=== PATIENT | male | born 1940 | race Caucasian/White ===

== ENCOUNTER 2019-12-21 11:36 | Inpatient (IN) | payer OTHER, MEDICARE ==
[~2019-12-21] VITALS: Ht 182.9 cm; Wt 88.3 kg
[~2019-12-21 11:36] MED LIST: ASPIRIN325 PO; AUGMENTIN 875-1 EACH PO; B12 PO; CIPROFLOXACIN500 M1 PO; COLACE100 MG PO; EXELON1 EAC1; EXELON1 EAC1 TOP; FLOMAX PO; FOLIC ACID 40400 MC1 PO; HYDROCORTISONE30 G9 TOP; IBUPROFEN 800800 M1 PO; LEVOTHYROXINE0.05 MG PO; LIPITOR; LIPITOR10 MG PO; METAMUCIL660 GM PO; NAMENDA; NAMENDA 10 MG T10 MG PO; NORCO 5-325 TA1 EACH PO; OXYCODONE HCL 55 MG PO; SYNTHROID; TRAMADOL200 MG PO; XARELTO10 MG PO; ZOFRAN ODT4 MG PO; ZOLOFT50 MG PO; [UNRECOGNIZED DRUG - OTHER]; [UNRECOGNIZED DRUG - REMARK]
[2019-12-21 11:43] VITALS: BP 129/67
[2019-12-21 12:04] LABS: BASOPHILS 1.4 % (0.0-2.0); EOSINOPHILS 1.3 % (0.0-3.0); HEMATOCRIT 44.7 % (42.0-52.0); HEMOGLOBIN 15.2 gm/dL (14.0-18.0); MCH 31.9 pg (26.0-34.0); MCV 93.8 fL (80.0-100.0); MONOCYTES 5.5 % (1.0-8.0); PLATELET COUNT 224 thou/uL (150-400); POLYS 69.8 % (36.0-66.0); RBC 4.77 mil/uL (4.50-6.00); WBC 7.2 thou/uL (4.0-11.0)
[2019-12-21 12:13] LABS: ANION GAP 7 mmol/L (7-16); BUN 14 mg/dL (7-18); CALCIUM 8.5 mg/dL (8.5-10.1); CHLORIDE 104 mmol/L (98-107); CO2 26 mmol/L (21-32); CREATININE 1.4 mg/dL (0.7-1.3); GLUCOSE 172 mg/dL (74-106); POTASSIUM 3.7 mmol/L (3.5-5.1); SODIUM 137 mmol/L (136-145)
[2019-12-21 12:17] LABS: ALBUMIN 3.4 g/dL (3.4-5.0); SALICYLATE < 2.8 mg/dL (2.8-20.0); SGOT 17 U/L (15-37); SGPT 22 U/L (30-65); TOTAL BILIRUBIN 0.5 mg/dL (<0.1-1.0); TOTAL PROTEIN 7.5 g/dL (6.4-8.2)
[2019-12-21] MEDS ORDERED: FLOMAX0.4 MG PO (12:33)
[2019-12-21] MEDS ORDERED: SEROQUEL 25 MG25 MG PO (12:33)
[2019-12-21] MEDS ORDERED: XANAX 0.25 MG0.25 MG PO (12:34)
[2019-12-21 13:37] LABS: URINE BILIRUBIN NEGATIVE (Negative); URINE BLOOD TRACE (Negative); URINE CLARITY CLEAR; URINE COLOR YELLOW; URINE GLUCOSE-RANDOM* NEGATIVE (Negative); URINE KETONES NEGATIVE (Negative); URINE LEUKOCYTES-REFLEX NEGATIVE (Negative); URINE NITRITE-REFLEX NEGATIVE (Negative); URINE PROTEIN (DIPSTICK) NEGATIVE (Negative); URINE SPECIFIC GRAVITY 1.025 (1.005-1.035); URINE UROBILINOGEN 0.2 E.U./dl (0.2-1.0)
[2019-12-21 13:46] LABS: AMP/METHAMP Negative (Negative); BARBITURATES Negative (Negative); BENZODIAZEPINES POSITIVE (Negative); COCAINE Negative (Negative); METHADONE Negative (Negative); OPIATES Negative (Negative); PCP Negative (Negative)
[2019-12-21 14:30] VITALS: BP 130/75
[2019-12-21 16:12] VITALS: BP 135/74
--- NOTE | 2019-12-21 16:21 | NUR ---
WHITE MALE ARRIVED ONT THE UNIT FROM ER ON A CART. HE IS ABLE TO AMBULATE FROM THE CART TO THE BED. HE IS VERY FORGETFUL AND NEEDS SEVERAL PROMPTS TO FOLLOW DIRECTIONS. HE CONTINUED TO STATE HIS IS TAKING HIM TO THE AIRPORT SO HE CAN FLY OUT TONIGHT BUT DID NOT STATE WHERE. HE WAS REMINDED BY THIS STAFF WHY HE WAS HERE AND THAT HE WOULD NOT BE FLYING OUT TONIGHT. HIS , ADA, DID BRING HIM TO THE HOSPITAL ER AND THEN LEFT TO RETURN TO THEIR HOME. PT. HAS BEEN LIVING AT HOME WITH HIS , BUT HE IS NOT EASY TO TAKE CARE OF ANY LONGER SO SHE BROUGHT HIM HERE FOR EVALUATION. HE HAS HAD A TOTAL LEFT HIP REPLACEMENT AND A HERNIA REPAIR SURGERY IN THE PAST. HE IS ALLERGIC TO CIPRO. HIS IS ONLY ORIENTED TO HIS NAME. WHEN HE FIRST GOT OUT OF HIS ROOM AND STARTED WALKING AROUND, HE WENT STRAIGHT TO THE FRONT DOORS AND STARTED ATTEMPTING TO GET OUT OF THE FRONT DOOR. HE WAS REDIRECTABLE THOUGH.
[2019-12-21 19:34] VITALS: BP 105/67
--- NOTE | 2019-12-21 21:54 | H ---
[facility] [place] [address] HISTORY AND PHYSICAL Name: CODY CANSECO Room #: 526B-B ADM IN M.R.#: [id number] Admission: 12/21/19 Attend Phys: Juarez Cantrell DO Discharge: Date of : 36 Report #: [id number] THIS REPORT FOR: cc: PATSY - Family physician unknown FAM - Family physician unknown Juarez Cantrell DO ~ CC: Juarez GARNER unknown DATE OF SERVICE: 12/21/2019 INPATIENT PSYCHIATRIC EVALUATION ATTENDING PHYSICIAN: Juarez Cantrell DO. DIVISION SERVICE MANAGER: Bryan Gutierrez MD CHIEF COMPLAINT: "Okay." SOURCES OF INFORMATION: Brief interview with the patient in person, telephone interview with , and the Emergency Room records. HISTORY OF PRESENT ILLNESS: This is 79, almost an 80-year-old male who was brought to the Emergency Room by his late morning today. The patient has a 14-year history of neurodegenerative disease, namely of Alzheimer's. He has been particularly disabled the last 9 years. Of late over the last few weeks, the patient is exit seeking, difficult to redirect. The has made some initial inquiries in a long-term care placement. She was declined at places due to feeling the patient needed a brief psychiatric hospitalization for medication evaluation. From Emergency Room notes, the patient was cooperative. The patient has notably been more aggressive in the evenings, progressed to being also grossly throughout the day. Regularly threatens to call the police on the patient's stating that he does not know who he is and wants her to be removed from his house. The patient's has attempted to adjust medications. Apparently, the patient sees Dr. Deborah August, neurologist, who is the patient's primary care provider. The patient is prescribed Xanax which makes him unsteady. PAST MEDICAL HISTORY: Includes inguinal herniorrhaphy, total left hip arthroplasty. HOME MEDICATIONS: Noted to be tamsulosin, Seroquel, alprazolam, atorvastatin, levothyroxine, memantine, rivastigmine, sertraline. ALLERGIES: CIPROFLOXACIN, REACTION IS A RASH. [facility] [address] [place] [address] HISTORY AND PHYSICAL Name: CODY CANSECO Room #: 526B-B ADM IN M.R.#: [id number] Admission: 12/21/19 Attend Phys: Juarez Cantrell DO Discharge: Date of : 36 Report #: [id number] SOCIAL HISTORY: The patient has denied history of tobacco, alcohol or illicit drugs. REVIEW OF SYSTEMS: From the ER: CONSTITUTIONAL: Negative for chills or fever. HEENT: Negative for ear pain and hearing loss. RESPIRATORY: Negative for cough. CARDIOVASCULAR: Negative for chest pain. GASTROINTESTINAL: Negative for abdominal pain, nausea, vomiting. GENITOURINARY: Negative for dysuria. MUSCULOSKELETAL: Negative for back pain, myalgias, neck pain. SKIN: Negative for rash. NEUROLOGICAL: Negative for headaches. Weight in the ED was 86.18 kg, BMI 25.9. ADDITIONAL SOCIAL HISTORY: The patient was born and raised in [place], [place]. He obtained a bachelor's degree. He had a noncombat service in the [employer]. 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 It sounds like around 15-20 years ago during normal skilled nursing times, the patient wanted to do murals, the last one he completed was 9 years ago. FAMILY HISTORY: He has a brother that committed suicide at 13, another brother who had brain damage from his fever, did make it to her adult life. He has been once previously. He currently has a blended family, his had 2 children, he had one son. He otherwise states they have been in the 38 [place] neighborhood. As far as I recall, the states the adopted one of her children when they got . The patient has no history of civil or criminal legal trouble. Also, no history of stroke, cancers. LABORATORY DATA: CBC within normal limits. Chemistry: Sodium 137, potassium 3.7, chloride 104, bicarbonate 26, anion gap 7, BUN 14, creatinine 1.4, estimated GFR 49, glucose 172, calcium 8.5, total bilirubin 0.5, AST 17, ALT 22, alkaline phosphatase 79, total protein 7.5, albumin 3.4. Urinalysis showed trace blood, otherwise within normal limits. Toxicology: Less than 2 salicylates, less than 2 acetaminophen. Urine drug screen was negative except positive for benzodiazepines. Serum alcohol was less than 10. No radiology was performed. PHYSICAL EXAMINATION: VITAL SIGNS: Temperature 36.4, pulse 63, respirations 18, BP 135/74, O2 sat 97%. GENERAL: Wearing glasses: Normal gait and station. [address] [address] HISTORY AND PHYSICAL Name: CODY CANSECO Room #: 526B-B [facility] IN M.R.#: [id number] Admission: 12/21/19 Attend Phys: Juarez Cantrell DO Discharge: Date of : 36 Report #: [id number] MENTAL STATUS EXAMINATION: This is a well-developed male, appearing stated age. Attention limited. Concentration limited. Speech is normal rate. Thought process linear and limited. Thought content, relative poverty of thought. No psychomotor agitation. No psychomotor retardation. Denied SI or HI. Denied auditory, visual, or tactile hallucinations. Mood and affect congruent and euthymic, fair range. Memory not formally tested today. Insight limited. Judgment impaired. Fund of knowledge below average. FORMULATION: An 79-year-old male admitted through the Emergency Room. 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 Medical comorbidities include benign prostatic hypertrophy, hyperlipidemia, hypothyroidism. PLAN: Evaluate, stabilize, obtain collateral: MEDICATIONS: As follows: Tamsulosin 0.4 mg p.o. daily for BPH, certainly reduced from 50 to 25 mg p.o. daily to mitigate any agitation; atorvastatin 10 mg p.o. daily for hyperlipidemia; levothyroxine 50 mcg p.o. daily for hypothyroidism; Namenda 10 mg p.o. b.i.d. for cognitive enhancement; Seroquel, he was taking 25 mg, I believe 3 times a day, I increased that to 50 mg 3 times a day. I discontinued rivastigmine due to slow heart rate. Otherwise, house PRNs. ESTIMATED LENGTH OF STAY: 10-14 days. The patient's is wishing placement. We did not get a copy of DPOA in the Emergency Room. will fax that tomorrow. The patient is a no code. Time spent on interview, review of records, coordination of care is at least 60 minutes. STRENGTHS: He is insured, has supportive family. WEAKNESSES: Advancing age, neurodegenerative disease. Several medical problems. <ELECTRONICALLY SIGNED> By: Juarez Cantrell, 12/21/19 2154 [id number] 1919 Juarez Cantrell, /nt
--- NOTE | 2019-12-22 03:08 | NUR ---
12-21-19 CARE TRANSFERED AT 1915; 194 PT STANDING IN DAY ROOM, PT REPOSITION TO SITTING POSITION FOR ASSESSMENT, PT PLEASANT AND COMPLIANT, AAOX1, SKIN W/D, PT DENIES ANY PAIN OR SI/SH/HI. PLEASE REFER TO NURSING INTERVENTIONS FOR MORE DETAIL INFORMATION. ZERO ACUTE DISTRESS NOTED.
[2019-12-22 07:30] VITALS: BP 127/76
--- NOTE | 2019-12-22 07:52 | EKG ---
[facility] [place] [address] ELECTROCARDIOGRAM REPORT Name: CODY CANSECO Room #: [facility]- ADM IN M.R.#: [id number] Admission: 12/21/19 Attend Phys: Juarez Cantrell DO Discharge: Date of : 36 Report #: [id number] THIS REPORT FOR: cc: PATSY - Family physician unknown FAM - Family physician unknown Jori Bravo MD [facility] ~ THIS REPORT FOR: //name// [facility] ED Test Date: 2019-12-21 Test Time: 12:03:51 Pat Name: CODY CANSEOC Department: Room: [facility] Gender: M Dry Cell Sealer: : 1940 Requested By: John Campos Order Number: [id number] MD: Jori Bravo Measurements Intervals [place] Rate: 64 P: 0 MO: 178 QRS: -30 QRSD: 95 T: 105 QT: 398 QTc: 411 Interpretive Statements Incomplete tracing, recommend repeat tracing with all leads Sinus rhythm Poor R wave progression Baseline wander in lead(s) V1,V2 No previous ECG available for comparison Electronically Signed On 12-22-2019 7:51:00 CDT by Jori Bravo [email or web address] <ELECTRONICALLY SIGNED> By: Jori Bravo MD, [facility] 12/22/19 0751 [id number] [id number] Jori Bravo MD, [facility] /EPI
--- NOTE | 2019-12-22 11:43 | NUR ---
Up ambulating in unit without s/o distress. Frequent requests to go home, wants to know where is. Spoke with on phone. Orientated to name only. Alot of confused speech. Denies SI/HI. Steady gait. Compliant with meds, redirectable. Breath sounds clear t/o. Reg HR auscultated. Color pink with brisk capillary refill and palpable peripheral pulses. No edema noted in feet. Independent with voiding. Active bowel sounds over soft, rounded abdomen. Numerous black circular macular/papular lesions over back, one greater than 2 cm. Sitting in day room without s/o distress. One episode of exit seeking where he was trying to push open door.
--- NOTE | 2019-12-22 15:44 | NUR ---
Tyshawn spoke with pt's spouse Kriss and she stated that she would like pt to be placed in memory care, and will be calling her elder law admitted attorneys to finish the medicaid application. TYSHAWN will send referrals on thursday for placement
--- NOTE | 2019-12-22 16:32 | NUR ---
Sw completed the intake assesmsnet and TP.
[2019-12-22 19:36] VITALS: BP 129/71
[2019-12-22 21:54] VITALS: BP 129/71
--- NOTE | 2019-12-23 01:15 | NUR ---
Assumed care of patient this pm shift. Patient in good spirits walking the halls with peers. Patient ambulatory. Patient denies pain. Patient denies hi/si. Patient is continent of bowel and bladder. Patient gets lost going to his room and needs redirection. Patient is neat and tidy. Patient is pleasantly confused. Patients assessment shows clear breath sounds, active bowel sounds, and s1 s2 heard with auscultation. We will continue to montior patient.
[2019-12-23 08:35] VITALS: BP 133/76
--- NOTE | 2019-12-23 13:43 | NUR ---
Up ambulating t/o unit with regular gait. Alert and orientated to person only. Denies SI/HI. Cofused speech when attempting to converse. Calm and compliant with meds/cares. Breath sounds clear t/o. Reg HR auscultated. Color pink with brisk capillary refill and palpable peripheral pulses. No edema noted. Independent with voiding. Active bowel sounds over soft, rounded abdomen. called, updated on pt condition. Appropriate questions and concerns.
--- NOTE | 2019-12-23 14:14 | NUR ---
Sw sent referrals to [facility] and [facility] for LTC.
--- NOTE | 2019-12-23 15:04 | NUR ---
[facility] does not have any male beds so referral was sent onto [facility]
--- NOTE | 2019-12-23 15:44 | NUR ---
Pt was denied at [facility] as they do not take medicaid pending
[2019-12-23 19:32] VITALS: BP 124/80
--- NOTE | 2019-12-23 20:27 | NUR ---
ASSUMED CARE ON 12/23/19 @ 19:15. AMBULATING INDEPENDENTLY, INCLUDING GOING INTO OTHER PATIENTS ROOMS AND USING THE TOILET. A&OX1, HRRR, LUNGS CTA, ABD B.S NORMOACTIVE.
[2019-12-24 01:50] VITALS: BP 124/80
[2019-12-24 07:45] VITALS: BP 151/85
[2019-12-24 08:00] VITALS: BP 151/85
--- NOTE | 2019-12-24 08:23 | NUR ---
PT UP THIS AM IN DINING ROOM. PT TOOK MEDS WITHOUT ANY ISSUES. PT ORIENTED TO PERSON. PT KNOWS NAME AND BIRTHDAY, PT WHISPERED YEAR TO NURSE. PT STATED HIS GOAL WAS TO GO SOMEWHERE. ASKED PT IF HE KNOW WHERE HE IS, HE STATED HE WAS SOMEWHERE ELSE BEFORE HERE.
--- NOTE | 2019-12-24 09:30 | NUR ---
PT ADA CALLED AND SPOKE WITH PT. SHE STATED THAT THE SEROQUEL MADE HIS VOICE SOUND GARBLED YESTERDAY. HIS SPEECH IS CLEARER TODAY.
--- NOTE | 2019-12-24 22:32 | NUR ---
PT TO CT FOR SCAN OF HEAD. PER RN, PATIENT AT BASELINE NEURO STATUS. TAKEN TO ED FOR STITCHES TO HEAD LAC AFTER CT. ER MD CURRENTLY AT BEDSIDE EVALUATING PATIENT.
[2019-12-24 22:38] VITALS: BP 137/79
--- NOTE | 2019-12-24 22:45 | NUR ---
HEAD LAC STITCHED PER ER MD. LEFT HAND SKIN TEAR WOUND CLEANED AND DRESSED. PT REMAINS AT BASELINE NERUO STATUS.
--- NOTE | 2019-12-24 23:34 | NUR ---
At 2114, patient fell to floor through opening of doorway. Staff was alerted by bed alarm going off but patient had fallen prior to staff being able to get to him. Patient received a laceration to face over left eyebrow, a skin tear to posterior of left hand, and bleeding to gums where head hit back of hand and floor. Physician was notified @ 2119 et ordered non-contrast CT of head. Hospitalist was notified @ 2124. CT of head was performed at 2214 et patient was then taken to ER for sutures. Patient's was notified of incident @ 2229 et informed of sutures et CT of head. Patient's was informed that we would call if there was any change in patient's condition. verbalized understanding. Post fall intervention was implemented et high risk fall was added to care plan. Will continue to monitor per protocol.
[2019-12-24 23:40] VITALS: BP 140/80
--- NOTE | 2019-12-25 04:52 | NUR ---
Assumed care of pt @ 1900. Pt calm et cooperative with pleasant demeanor this shift. Took medications whole without difficulty. Ambulates the halls ad karan with steady gait. Pt fell earlier in the shift while attempting to exit room through partial door. Head CT was done which was negative. Pt has sutured head laceration above left eye, currently has a black eye, a skin tear that was cleansed et bandaged in the ER, and left-sided pain with movement. SAFETY DIRECTOR was notified of pain on left side et order was obtained to have one-view CXR in am. Due to confused state of pt, unable to ascertain SI/HI but pt does not appear to be in any acute emotional distress at present time. VSWNL throughout post-fall protocol. Health assessment reveals no abnormalities other than previously noted. Currently resting in recliner in dayroom with occasional moaning due to pain. Tylenol 650mg PO was given for pain with no relief. Will continue to monitor per protocol.
[2019-12-25 07:37] VITALS: BP 169/67
--- NOTE | 2019-12-25 15:02 | NUR ---
PATIENT NOTED TO HAVE PAIN WITH CERTAIN MOVEMENTS AND SOME MOANING NOTED. PATIENT GRABS LEFT SIDE, RIB AREA WITH MOVEMENT. TYLENOL 650MG PO GIVEN FOR PAIN. DR STEPHENSON AND DR VERGARA AWARE.
[2019-12-25 16:00] VITALS: BP 125/74
[2019-12-25 19:39] VITALS: BP 151/85
--- NOTE | 2019-12-25 19:44 | NUR ---
ASSUMED CARE ON 12/25/19 @ 19:15. HEART RATE REGULAR, OCCASIONAL IRREGULAR BEAT NOTED. ABD N X 4Q, LUNG SOUNDS CTA BILATERAL. SEATED IN KIM CHAIR, BRUISE NOTED TO LEFT EYE AND FOREHEAD. SUTURED CONTUSION NOTED. WILL BE GOING TO RADIOLOGY @ 2000 TO 2300, REQUESTED BY RADIOLOGY.
--- NOTE | 2019-12-25 22:40 | NUR ---
X-ray results obtained from this evening. Notified Lesvia Orozco NP of readings in which she will review and advise of any further action needed.
--- NOTE | 2019-12-26 00:08 | NUR ---
C/O LEFT RIB PAIN OF 5/10, TYLENOL 650 PROVIDED @ 23:50, TUCKED INTO BED AND RETURNED TO SLEEP, EYES CLOSED RESPIRATIONS EVEN AND UNLABORED. BED IN LOW POSITION, BED ALARM SET. WILL CONTINUE TO MONITOR Q 12 MINUTES FOR SAFETY.
[2019-12-26 01:26] VITALS: BP 151/85
--- NOTE | 2019-12-26 05:55 | NUR ---
Radiology report called to Lesvia Orozco NP @ 05:55 on 12/26/19. No new orders, continue to monitor.
[2019-12-26 07:22] VITALS: BP 137/81
--- NOTE | 2019-12-26 11:57 | NUR ---
Pt has been accpted at [facility] IF pt has a COVID 19 negative test , D/C can be expected 12/27. Pt will go skilled and then stay LTC. SW called and reported this to spouse.
[2019-12-26 13:28] VITALS: BP 137/81
--- NOTE | 2019-12-26 13:33 | NUR ---
SW spoke with pt's spouse and she wants to keep looking for placement. SW had to report that all other options had been exhausted, and that [facility] was the best option. She disagreed. Tyshawn then reminded her that if placement is not found on out of pocket expense will happen for the hospital stay. She also wants the referral sent to [place]. Tyshawn provided her with the list and asked her to call and find placement and referrals will be sent.
--- NOTE | 2019-12-26 13:41 | NUR ---
ASSUMED CARE AT 0700. PT. ASLEEP IN HIS ROOM. HE SLEPT THROUGH 0900 MED PASS AND BREAKFAST. HE WOKE UP AND WAS GIVEN HIS MEDICATIONS UPON WAKING UP. HE WAS COOPERATIVE WITH TAKING HIS MORNING MEDICATIONS. PT. CONTINUES TO BE CONFUSED. HE BELIEVES HIS IS FLYING IN TO MEET HIM. STAFF KEEP TELLING HIM HIS IS NOT HERE AND IS NOT COMING TODAY, BUT HE CONTINUES TO BELIEVE SHE WILL BE HERE AND IS HERE CURRENTLY. HE HAS REMAINED PLEASANT AND COOPERATIVE WITH STAFF/PEER.
[2019-12-26 19:35] VITALS: BP 109/66
[2019-12-26 21:00] VITALS: BP 109/66
--- NOTE | 2019-12-27 01:02 | NUR ---
PATIENT UP AND WALKING AROUND IN DINING ROOM THIS EVENING. PATIENT IS A/0 X 1 . HE IS PLEASANTLY CONFUSED. HE KEPT ASKING WHERE "ADA" HIS WAS. TOLD HIM HE CAN TALK WITH HER TOMORROW. HE DID TALK WITH HIS DAUGHTER ON THE PHONE TONIGHT BUT HAS A HARD TIME KNOWING HOW TO USE THE PHONE AND LISTEN. HE COULD NOT COMPREHEND THAT IT WAS HIS DAUGHTER TALKING WITH HIM. HE QUICKLY FORGETS DIRECTIONS AND HAS TO HAVE THEM REPEATED. HE IS CONFUSED. ASSISTED PATIENT TO BED FOR THE NIGHT 3 TIMES BECAUSE HE WOULD GET BACK UP AND LOOK FOR ADA. PT IS SLEEPING AT THIS TIME AND DOES APPEAR COMFORTABLE. HE HAS PURPLE/BLUE BRUISING OF LEFT EYE AND STITCHES AT LEFT EYEBROW FROM PAST FALL 2 DAYS AGO. HE DENIES PAIN. DENIES SI/HI. LEFT HAND ABRAISION WAS CLEANED AND ANTIBIOTIC OINTMENT APPLIED AND NEW DRESSING APPLIED. PATIENT DOES NOT APPEAR TO BE IN PAIN. HE HAS BEEN RELAXED AND COOPERATIVE WITH FREQUENT REDIRECTION. HE TOOK HIS HIS MEDS WHOLE WITHOUT DIFFICULTY. HE DID HAVE HS SNACK TONIGHT. BED IN LOW POSITION AND BED ALARM ON. ROUTINE ROUNDS TO ASSESS FOR STATUS AND SAFETY OF PATIENT. WILL CONTINUE TO MONITOR.
--- NOTE | 2019-12-27 02:44 | NUR ---
LAB SPECIMAN COLLECTED AT 0152 FOR R/O COVID 19 AND TAKEN TO LAB. PATIENT UP IN RECLINER HAVING 4 OUT OF 5 PAIN IN LEFT RIBS. TYLENOL 650MG PO AND TRAZADONE 50MG GIVEN AND MUSCLE RUB APPLIED TO LEFT RIBS AREA. PATIENT IS RESTING QUIETLY IN RECLINER AT THIS TIME.
[2019-12-27 08:29] VITALS: BP 121/85
--- NOTE | 2019-12-27 11:02 | NUR ---
Tramaine encouraged pt to speak with Sheela at [facility] to go over her concerns. Then Tramaine got a call that [facility] has accepted this pt. When tramaine called spouse she stated that she wanted [facility] after all... Tramaine then asked her to call [facility] and discuss her concerns and then decide and call back witha decision by 1pm. D/C is still expected on 12/28. Tramaine sent a referral to [employer] for a medicaid application to be submitted.
--- NOTE | 2019-12-27 13:03 | NUR ---
Up ambulating in unit without s/o distress. Exit seeking at times. Alert with confused speech, orientated to name only. No speech/behavior suggestive of SI/HI. Regular, steady gait. Breath sounds clear t/o. Regular HR auscultated. Color pink with brisk capillary refill and palpable peripheral pulses. Independent with voiding. Active bowel sounds over soft, rounded abdomen. Large bruise around L eye with sutures above eye just above eyebrow, no s/o infection, gauze drsg applied. Abrasion with small skin tear to L wrist, cleaned with NS and gauze drsg applied after neosporin. Regular steady gait.
--- NOTE | 2019-12-27 17:19 | NUR ---
Tyshawn received a VM that pt will be going to [facility], and that their cottrell blower will file for medicaid. This pt will go skilled and then LTC PP. Tyshawn called and confirmed this with braulio at [facility]. The covid 19 will be ordered tomorrow. Once that is sent, a D/C time will be set for 12/27. Tyshawn reported this to Dr Cantrell.
[2019-12-27 19:48] VITALS: BP 123/81
--- NOTE | 2019-12-27 21:23 | NUR ---
At 1905, patient was in dayroom attempting to sit into recliner when he sat on the floor and bumped his head on wall behind him. Fall was witnessed by several staff. Patient was assessed post fall et no injury noted at this time. Post fall was added to interventions. factory supervisor, physician, and were all notified per protocol. VSWNL. Patient was assisted into recliner et asked to remain there to rest. Pt currently resting in recliner with eyes open. Will continue to monitor per protocol.
[2019-12-27 21:27] VITALS: BP 137/75
[2019-12-27 22:17] VITALS: BP 137/75
--- NOTE | 2019-12-28 00:22 | NUR ---
Assumed care of patient this pm shift. Patient had a fall earlier during shift change. Patient was not visibly hurt and apparently missed his chair and landed on his rear end. Patient had a fall previously which left him with sutures, broken ribs, and a black eye. Patient is alert to self. Patient is otherwise pleasantly confused. Patient denies hi/si. Patient states that he has rib pain and was given medication for the pain. Patient is ambulatory but unsteady. Patient takes medications crushed in pudding. Patients assessment shows clear breath sounds, active bowel sounds, and s1 s2 heard with auscultation. Patient is redirectable. We will continue to monitor.
[2019-12-28 07:51] VITALS: BP 137/67
--- NOTE | 2019-12-28 11:25 | NUR ---
Pt already got a COVID 19 test with negative result on 12/26. This was faxed with the DPOA paperwork and DA 124 C to [facility]. SW called and confirmed that pt is able to d/c today to [facility], spoke with Sheela and then Kriss (spouse). Now we are waiting for a scrap picker time.
--- NOTE | 2019-12-28 11:50 | NUR ---
TYSHAWN confirmed pickle processor for 2pm. TYSHAWN made packet and left it on the chart. Tyshawn also faxed d/c orders and summary to [facility] . Tyshawn called and confirmed the pickle processor time with
[2019-12-28] MEDS ORDERED: FLOMAX0.4 MG PO (12:19)
[2019-12-28] MEDS ORDERED: LIPITOR10 MG PO (12:20)
[2019-12-28] MEDS ORDERED: TRAZODONE HCL50 MG PO (12:21)
[2019-12-28] MEDS ORDERED: SEROQUEL 50 MG50 MG PO ×2 (12:22→12:26)
[2019-12-28] MEDS ORDERED: NAMENDA 5 MG TAB5 M1 PO (12:27)
[2019-12-28 12:28] VITALS: BP 137/67
[2019-12-28] MEDS ORDERED: SYNTHROID50 MCG PO (12:28)
[2019-12-28 13:48] VITALS: BP 137/67
--- NOTE | 2019-12-28 13:55 | NUR ---
ASSUMED CARE AT 0700 THIS MORNING. PT. UP IN W/C. HE IS SLEEPY THIS MORNING. HE CONTINUES TO BE VERY CONFUSED. HIS STITCHES ARE INTACT OVER THE LEFT EYE. HIS MEDICATIONS WERE CRUSHED AND PUT IN PUDDING. HE TOOK THESE WITHOUT DIFFICULTY. ONCE HE WOKE UP, HE CAME ONTO THE UNIT AND WAS SITTING OR WHEELING HIMSELF IN THE HALLS. HIS CALLED AND SPOKE WITH THE PT. ALL HIS CLOTHING AND BELONGINGS WERE GATHERED FOR DISCHARGE.
--- NOTE | 2019-12-28 13:56 | NUR ---
SW visited with pt before he left and he was wearing his eyeglasses. Spouse was concerned we had lost them.
--- NOTE | 2019-12-28 17:05 | HC ---
[facility] [place] [address] CONSULTATION Name: CODY CANSECO Room #: 526B-B [facility] IN M.R.#: [id number] Admission: 12/21/19 Attend Phys: Juarez Cantrell, Discharge: 12/28/19 Date of : 36 Report #: [id number] THIS REPORT FOR: cc: PATSY - Family physician unknown FAM - Family physician unknown Ruben Ramírez MD ~ CC: Juarez GARNER unknown DATE OF SERVICE: 12/26/2019 We were asked by Dr. Beltran to see the patient. HISTORY OF PRESENT ILLNESS: The patient is an 79-year-old on the Psych Unit who sustained a fall. It appears that the patient was admitted on 12/21/2019 with Alzheimer's dementia and worsening aggressive behavior. The patient sustained a fall during the night of 12/24/2019 to 12/25/2019. CT of the head showed no changes, but the patient sustained a laceration over the left eye that required several stitches but notes state, the patient was not able to accurately describe what had happened. Chest x-ray showed a tiny left pneumothorax and there may be a rib fracture. Follow up chest x-ray today shows minimal left pneumothorax and no significant displacement of the ribs. PAST MEDICAL HISTORY: The patient has a history of left total hip replacement. MEDICATIONS: At home includes Flomax, Seroquel, Xanax, Lipitor, Synthroid, Namenda, rivastigmine patch and sertraline. ALLERGIES: CIPROFLOXACIN CAUSES HIVES. SOCIAL HISTORY: Not a smoker. REVIEW OF SYSTEMS: Obtainable only from the chart. PHYSICAL EXAMINATION: VITAL SIGNS: Today, the patient is afebrile, 36.4, heart rate 58, respiratory rate 16, blood pressure 137/81. Pulse ox 96% on room air. HEENT: No scleral icterus, no arcus. We do note the laceration over the left eye with 9 stitches in it and ecchymosis around the left eye. No obvious facial muscle asymmetry. NECK: No mass, no bruit. CHEST: Clear to auscultation bilaterally. HEART: Rhythm regular, no murmur. ABDOMEN: Soft. No mass, no tenderness. EXTREMITIES: No clubbing, cyanosis or edema. [address] [address] CONSULTATION Name: CODY CANSECO Room #: 526B-B DIS IN M.R.#: [id number] Admission: 12/21/19 Attend Phys: Juarez Cantrell DO Discharge: 12/28/19 Date of : 36 Report #: [id number] IMAGING DATA: I reviewed the chest x-rays and agree with the Radiology opinion. ASSESSMENT AND PLAN: The patient sustained a fall with minimal residual such as a tiny pneumothorax and nondisplaced rib fractures. The patient is not splinting. There is no shortness of breath or pulmonary dysfunction. I have recommended the patient just to have a followup chest x-ray and observation with additional testing of O2 saturation if there is some pulmonary dysfunction seen and pain medication if appropriate. However, the patient appears quite comfortable and I doubt there will be any important sequela related to this. Follow up chest x-ray tomorrow has been ordered to my understanding. Thank you for the consult. <ELECTRONICALLY SIGNED> By: Ruben Ramírez MD 12/28/19 [id number] Ruben Ramírez MD /nt
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
== END 2019-12-28 14:19 | DRG 57 ==
LOC: ER 11:36 → SBH 13:14 → EROBS 13:14 → SBH 13:14
PROVIDERS: Emergency Medicine; ADMIT Psychiatry & Neurology Psychiatry
PROC: 0HQ1XZZ Repair Face Skin, External Approach (ICD-10-PCS; principal; 2019-12-24)
DX: G30.9 Alzheimer's disease, unspecified (principal); F02.81 Dementia in other diseases classified elsewhere, unspecified severity, with behavioral disturbance; S22.32XA Fracture of one rib, left side, initial encounter for closed fracture; F01.51 Vascular dementia, unspecified severity, with behavioral disturbance; J93.9 Pneumothorax, unspecified; S09.8XXA Other specified injuries of head, initial encounter; E03.9 Hypothyroidism, unspecified; N40.0 Benign prostatic hyperplasia without lower urinary tract symptoms; R73.9 Hyperglycemia, unspecified; E78.5 Hyperlipidemia, unspecified; Z96.642 Presence of left artificial hip joint; M19.90 Unspecified osteoarthritis, unspecified site; W18.39XA Other fall on same level, initial encounter; Y92.238 Other place in hospital as the place of occurrence of the external cause; F41.9 Anxiety disorder, unspecified; Y93.89 Activity, other specified; Y99.8 Other external cause status; Z79.899 Other long term (current) drug therapy; Z88.1 Allergy status to other antibiotic agents; S01.112A Laceration without foreign body of left eyelid and periocular area, initial encounter; S61.512A Laceration without foreign body of left wrist, initial encounter
CPT/HCPCS: 10880